=== PATIENT | female | born 1950 ===

== ENCOUNTER 2021-10-06 09:15 | Inpatient (IN) | payer OTHER ==
[~2021-10-06] VITALS: Ht 154.9 cm; Wt 120.7 kg
[2021-10-06] MEDS ORDERED: LISIN PO (12:13)
[2021-10-06] MEDS ORDERED: HYZA PO (12:13)
[2021-10-06] MEDS ORDERED: OMEPRA PO (12:14)
[2021-10-06] MEDS ORDERED: SYNTHROID75 MCG PO (12:14)
[2021-10-09] MEDS ORDERED: VASOFLEX D1 CA1 EACH (07:49)
[2021-10-09] MEDS ORDERED: SIMVASTATIN20 MG (07:49)
[2021-10-09] MEDS ORDERED: LISINOPRIL40 MG (07:49)
[2021-10-09] MEDS ORDERED: OMEPRAZOLE20 MG (07:49)
[2021-10-09] MEDS ORDERED: MONTELUKAST SOD10 MG (07:50)
[2021-10-11] MEDS ORDERED: BACTRIM DS TAB1 EACH PO (06:32)
[2021-10-11] MEDS ORDERED: XARELTO10 MG PO (06:32)
[2021-10-11] MEDS ORDERED: OXYC1TAB9 PO (06:32)
[2021-10-11] MEDS ORDERED: INTEGRA PLUS C1 EACH PO (06:32)
== END 2021-10-11 15:11 | DRG 470 ==
LOC: O/R 10-09 05:57 → SURH 10-09 05:57
PROVIDERS: ADMIT Orthopaedic Surgery Sports Medicine; ATTEND Orthopaedic Surgery Sports Medicine
PROC: 0SRC0J9 Replacement of Right Knee Joint with Synthetic Substitute, Cemented, Open Approach (ICD-10-PCS; principal; 2021-10-09 11:30)
DX: M17.11 Unilateral primary osteoarthritis, right knee (principal); I10 Essential (primary) hypertension; E03.8 Other specified hypothyroidism; E66.8 Other obesity; Z20.822 Contact with and (suspected) exposure to COVID-19

== ENCOUNTER 2021-11-02 15:44 | Emergency (ER) | payer OTHER ==
[~2021-11-02] VITALS: Ht 154.9 cm; Wt 113.4 kg
[~2021-11-02 15:44] MED LIST: BACTRIM DS TAB1 EACH PO; HYZA PO; INTEGRA PLUS C1 EACH PO; LISIN PO; LISINOPRIL40 MG; MONTELUKAST SOD10 MG; OMEPRA PO; OMEPRAZOLE20 MG; OXYC1TAB9 PO; SIMVASTATIN20 MG; SYNTHROID75 MCG PO; VASOFLEX D1 CA1 EACH; XARELTO10 MG PO
[2021-11-02] MEDS ORDERED: ELIQUIS5 MG PO (18:06)
== END 2021-11-02 18:52 | disposition home or self-care (01) ==
LOC: ER 15:44
DX: I82.431 Acute embolism and thrombosis of right popliteal vein (principal); I10 Essential (primary) hypertension; Z88.6 Allergy status to analgesic agent; Z88.0 Allergy status to penicillin